=== PATIENT | male | born 1970 | race Caucasian/White ===

== ENCOUNTER 2020-03-02 07:40 | Outpatient (CLI) | payer BC, SELFPAY ==
--- NOTE | 2020-04-20 13:26 | WPDHOMESLEEP ---
Sleep Study - Home Unattended Date of Study: 03/02/20 Ordering Provider: Silvia Moser MD Interpreting Physician: Silvia Moser MD Home Sleep Study Type: Apnea Link Air Height: 1.75 m Weight: 106.594 kg Body Mass Index: 34.7 Neck Circumference (inches): 17.5 [place]: 3 Reason for Sleep Study difficulty initiating and maintaining sleep, waking throughout the night, chronic sedative use Sleep History Ty Steinberg is a 49-year-old male who has a history of difficulty staying asleep and getting to sleep even using medication. Does not awaken from sleep feeling short of breath. He rarely has awakenings at night with heartburn, belching or coughing. He occasionally snores, never loudly enough so that others complain about it. He rarely has trouble sleeping with a cold. He does not gasp for breath at night. He does not have breathing problems at night reported to him by others. He rarely sweats excessively at night. Does not notice his heart pounding or beating irregularly at night. He rarely falls asleep during the day, never involuntarily, never while driving and never during physical effort. He does not have loss of muscle tone with strong emotion. 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 He does not feel paralyzed on waking or falling asleep. He rarely has vivid dreamlike scenes upon awakening or falling asleep. He rarely is afraid to go to sleep. Occasionally has nightmares. He occasionally remembers his dreams. He frequently has racing thoughts. He constantly feels sad depressed and anxious. He never has muscular tension, never notices parts of his body jerking any never kicks at night. He denies having crawling and aching feelings in his legs at night and any leg pain at night. He does not have morning jaw pain. He does not grind his teeth during sleep. He rarely is bothered by pain during the day. He is not awakened by pain at night. He occasionally wakes up feeling stiff in the morning, rarely with sore achy muscles never with pain in the neck and spine. He has fatigue, panic, sexual issues, memory problems, insomnia, concentration difficulties, and nightmares. Normal bedtime is 9:00 p.m. falling asleep within 30 minutes, typically waking 1-3 times at night for 10 minutes. While awake he goes to the bathroom. Wake time varies. He wakes up as late as possible. He does not use an alarm clock. He has variable shifts at work. He denies taking naps. A short nap is not refreshing. He is usually drowsy in the morning for 2 hours. Habaits: No current tobacco. Caffeine 1 serving a day. No alcohol or recreational drugs. 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 Smoking status: Former smoker Medications Home Medications Medication Instructions Recorded Confirmed Type aripiprazole 5 mg tablet 5 mg PO DAILY 10/14/19 History duloxetine 60 mg capsule,delayed 60 mg PO DAILY 10/14/19 History release lamotrigine 200 mg tablet 200 mg PO DAILY 10/14/19 History lorazepam 0.5 mg tablet 0.5 mg PO DAILY PRN 10/14/19 History trazodone 100 mg tablet 100 mg PO BID 10/14/19 History Sleep Procedure This test was performed using 4 channel monitoring including respiratory effort channel, snoring channel, heart rate channel, and oxygen saturation channel. This study was scored using CMS guidelines. Sleep Architecture Not applicable for home sleep test. Respiratory Analysis The recording time was 8 hours 6 minutes. That evaluation time was 7 hours 5
[2020-04-20 13:38] VITALS: BMI 34.7
== END 2020-03-02 07:41 | disposition home or self-care (01) ==
LOC: ANHCSM 07:41
PROVIDERS: Visit Provider Internal Medicine Critical Care Medicine
DX: G47.33 Obstructive sleep apnea (adult) (pediatric) (principal)
CPT/HCPCS: 95806

== ENCOUNTER 2022-12-26 20:48 | Emergency (ER) | payer BC, SELFPAY ==
--- NOTE | ~2022-12-26 | CT_ITS ---
EXAMINATION: CT abdomen pelvis w con DATE: 12/26/2022 22:36 INDICATION: Acute onset of abdominal pain, nausea, vomiting, diaphoresis. TECHNIQUE: Computed tomography (CT) of the abdomen and pelvis was performed with 100 CC Omnipaque 350 intravenous contrast. Automated exposure control and iterative reconstruction technique were employe d. Exam dose: 1071.18 mGy-cm total exam DLP. COMPARISON: None. FINDINGS: Bilateral fat-containing foramen of [place]k hernias. The lung bases are clear of infiltrate or consolidation. Heart size is within normal range. No perica rdial or pleural effusion. Small sliding hiatal hernia. Status post cholecystectomy. Indeterminate approximately 2.2 cm right hepatic space-occupying mass lesion with apparently irregula r margins. Approximately 6.5 mm hypoattenuating lesion is suggested in the medial segment of the left hepatic lobe. Examination is limited by considerable patient respiratory motion. Additional smaller lesions including 3.5 mm hypoattenuating lesion of the lateral segment left hepatic lobe may be prese nt. No pancreatic mass lesion, calcification or ductal dilatation is evident. No bile duct dilatation is detected. Splenic size is within normal limits. Normal morphology of the adrenal glands. Probable 6 mm upper pole left renal cyst. The kidneys otherwise appear unremarkable considering the m otion artifact. No urinary tract calculus or hydroureteronephrosis is evident. There is prostate enlargement and minimal calcification. The urinary bladder appears unremarkable. Normal caliber of the abdominal aorta. No intraperitoneal or retroperitoneal or pelvic mass lesion or adenopathy or ascites is noted. Small fat-containing inguinal hernias. Very small fat-containing umbilical hernia. There are are numerous diverticula of the left colon; no CT evidence of diverticulitis or bowel obstr uction, bowel wall thickening, pneumatosis or intraperitoneal free air is detected. Normal appendix. Moderate chronic anterior wedging of T11 vertebral body. No suspicious osteolytic or osteoblastic les ions are noted. IMPRESSION: Limited examination due to considerable patient respiratory motion Multiple indeterminate hepatic space-occupying mass lesions. Consider hepatic MRI Small sliding hiatal hernia Status post cholecystectomy. Probable 6 mm upper pole left renal cyst Diverticulosis of left colon; no evidence of diverticulitis Normal appendix Chronic moderate anterior wedging of T11 vertebral body Reviewed, dictated and finalized at [facility]. Reviewed, dictated and finalized at [facility]. IMPRESSION: Limited examination due to considerable patient respiratory motion Multiple indeterminate hepatic space-occupying mass lesions. Consider hepatic M RI Small sliding hiatal hernia Status post cholecystectomy. Probable 6 mm upper pole left renal cyst Diverticulosis of left colon; no evidence of diverticulitis Normal appendix Chronic moderate anterior wedging of T11 vertebral body
[2022-12-26 20:57] VITALS: BP 107/61; PULSE 84; RESP 36; TEMP 36.5; O2SAT 100
[2022-12-26 21:34] LABS: Basophils Absolute Auto 0.1 K/mm3 (0.0-0.1); Basophils Percent Auto 0.3 % (0.2-1.2); Eosinophils Absolute Auto 0.1 K/mm3 (0-0.3); Eosinophils Percent Auto 0.3 % (0-4.4); Hematocrit 41.9 % (42.0-52.0); Hemoglobin 14.5 g/dL (14.0-18.0); Immature Granulocyte Absolute 0.12 K/mm3 (0.00-0.031); Immature Granulocyte Percent A 0.6 % (0-0.5); Lymphocytes Absolute Auto 3.16 K/mm3 (0.9-3.2); Lymphocytes Percent Auto 15.4 % (18.3-44.2); Mean Corpuscular HGB Conc 34.6 g/dl (32-36); Mean Corpuscular Hemoglobin 30.5 pg (26-34); Mean Corpuscular Volume 88.2 fl (80-100); Mean Platelet Volume 9.9 fl (7.4-10.4); Monocytes Percent Auto 4.8 % (2.6-8.5); Neutrophils Absolute Auto 16.2 K/mm3 (1.3-6.7); Neutrophils Percent Auto 78.6 % (45.5-73.1); Platelet Count Result 225 k/mm3 (150-375); Red Blood Count 4.75 M/mm3 (4.6-6.20); Red Cell Distribution Width 11.9 % (11.5-14.5); White Blood Count 20.6 K/mm3 (4.5-10.0)
[2022-12-26] MEDS: ONDANSETRON INJ 4 MG/2 ML VIAL IV PUSH (21:35)
[2022-12-26] MEDS: HYDROmorphone HCL INJ (*CRX) 1 MG/ML SYR 0.5 MG IV PUSH (21:35)
[2022-12-26] MEDS: SODIUM CHLORIDE 0.9% IV 1,000 ML 999 ML IV CONT ×3 (21:37→23:08)
[2022-12-26 21:48] LABS: Albumin Level 4.8 g/dL (3.5-5.1); Alkaline Phosphatase 68 U/L (38-126); Anion Gap 16 mmol/L (8-16); Aspartate Amino Transferase 32 U/L (17-59); Bilirubin,Total 0.6 mg/dL (0.2-1.3); Blood Urea Nitrogen 19 mg/dL (9-20); Calcium 9.2 mg/dL (8.4-10.2); Carbon Dioxide 17 mmol/L (22-30); Chloride 102 mmol/L (98-107); Estimated CRCL calculation 108 ml/min; Estimated Glomerular Filt Rate > 60; Glucose 170 mg/dL (65-110); Lactic Acid Reflex 5.9 mmol/L (0.7-2.0); Lipase 323 U/L (23-300); Potassium 3.3 mmol/L (3.4-5.0); Sodium 135 mmol/L (137-145)
[2022-12-26 22:00] LABS: Alanine Aminotransferase 43 U/L (6-50)
--- NOTE | 2022-12-26 22:05 | ED.GENADULT ---
[facility] - General Adult General Chief complaint: Abdominal Pain Stated complaint: abd pain, nausea Time Seen by Provider: 12/26/22 21:07 History of Present Illness [facility] narrative: Patient presents the emergency department with severe generalized abdominal pain. He is diaphoretic and moaning. He is also very pale. He is in severe pain. He states it started a couple hours prior to arrival when he thought he ate some bad food. He has also had diarrhea and vomiting. Denies having had episodes like this similar in the past Related Data Home Medications Medication Instructions Recorded Confirmed aripiprazole 5 mg tablet 5 mg PO DAILY 10/14/19 duloxetine 60 mg capsule,delayed 60 mg PO DAILY 10/14/19 release lamotrigine 200 mg tablet 200 mg PO DAILY 10/14/19 lorazepam 0.5 mg tablet 0.5 mg PO DAILY PRN 10/14/19 trazodone 100 mg tablet 100 mg PO BID 10/14/19 Allergies Allergy/AdvReac Type Severity Reaction Status Date / Time No Known Allergies Allergy Unverified 12/26/22 21:06 Review of Systems Review of Systems: Review of systems negative except what is documented in the [facility] Past Medical History Medical History Depression Depression Surgical History Surgical History Hx of cholecystectomy Social History Social History Social History: smoked in the past on and off, cigarettes, some marijuana, none recently, little alcohol; 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 Smoking status: Former smoker Exam Narrative: GENERAL: Diaphoretic, in distress, in pain HEAD: Normocephalic, atraumatic. EYES: PERRLA and EOMI. ENT: Nares clear, no rhinorrhea or epistaxis. Mucous membranes moist. NECK: Supple. CHEST: Clear to auscultation. No respiratory distress. Tachypnea HEART: Regular rate and rhythm. ABDOMEN: Soft, generalized tenderness diaphoretic nondistended. EXTREMITIES: Normal range of motion. No edema. SKIN: Warm, no rash. NEURO: No focal deficits. Alert and oriented x3. PSYCH: Normal mood and affect. Course Course Emergency Course: Differential diagnosis includes but not limited to perforated bowel, pancreatitis, kidney stone, volvulus, small bowel obstruction, appendicitis, acute cholecystitis Telemetry ordered due to chief complaint and getting narcotic pain medication to evaluate for dysrhythmias. Evaluated by myself. Rhythm NSR Rate 85 Vital Signs Vital signs: Vital Signs Temperature 36.5 C 12/26/22 20:57 Pulse Rate 84 12/26/22 20:57 Respiratory Rate 36 H 12/26/22 20:57 Blood Pressure 107/61 12/26/22 20:57 Pulse Oximetry 100 12/26/22 20:57 Oxygen Delivery Room Air 12/26/22 20:57 Temperature 36.5 C 12/26/22 20:57 Pulse Rate 84 12/26/22 20:57 Respiratory Rate 36 H 12/26/22 20:57 Blood Pressure 107/61 12/26/22 20:57 Pulse Oximetry 100 12/26/22 20:57 Oxygen Delivery Room Air 12/26/22 20:57 Medical Decision Making MDM Narrative Medical decision making narrative: CT scan ordered negative for acute pathology causing patient's presentation Initial lactate elevated but he was also hyperventilating. Fluids ordered. Will repeat lactate Repeat lactate 2.2. Patient's presentation consistent with THC hyperemesis. Cool diaphoretic and hyperventilating with respiratory rate 36 and CO2 17. White blood cell count secondary to vomiting. Patient vomiting very loudly and agitated consistent with THC. He has not had this in the past. Will reassess. Pt is back to baseline. Abdominal pain is gone. no further vomiting. He is drinking water. VSS without hyperventilation, discussed liklihood of hyperemesis with him and his mom. I strongly recommended that he stop marijuana use in the future to avoid this episode. He is receptive. I also advised strict return precautions and advised him to follow-u
[2022-12-26] MEDS: HYDROmorphone HCL INJ (*CRX) 1 MG/ML SYR IV PUSH ×2 (22:22→23:07)
[2022-12-26] MEDS: LORazepam INJ (*CRX) 2 MG/ML VIAL 1 MG IV PUSH (23:06)
[2022-12-26 23:36] LABS: Appearance Urine Clear (Clear); Bilirubin Urine Negative (Negative); Blood Urine Negative (Negative); Color Urine Yellow (Yellow); Glucose Urine UA Negative (Negative); Ketones Urine 2+ mg/dL (Negative); Leukocyte Esterase Ur Negative LEU/UL (Negative); Nitrate Urine Negative (Negative); Protein Urine Negative (Negative); Specific Grav Ur 1.025 (1.001-1.035); Urobilinogen Urine 0.2 mg/dL (<2.0); pH Urine 6.5 (5.0-9.0)
[2022-12-26 23:37] LABS: Add Urine Microscopic? NO
[2022-12-26 23:53] LABS: Amphetamine Screen Urine Negative (Negative); Barbiturate Screen Urine Negative (Negative); Benzodiazepines Screen Urine Negative (Negative); Cannabinoid Screen Urine Positive (Negative); Cocaine Screen Urine Negative (Negative); Methadone Screen Urine Negative (Negative); Opiate Screen Urine Negative (Negative); Phencyclidine Screen Urine Negative (Negative)
[2022-12-27 00:31] LABS: Reflex Lactic Acid Yes or No Add Lactic
[2022-12-27 00:52] LABS: Lactic Acid Reflex 2.2 mmol/L (0.7-2.0)
== END 2022-12-27 01:22 | disposition home or self-care (01) ==
PROVIDERS: Emergency Provider Emergency Medicine
DX: R10.84 Generalized abdominal pain (principal); R11.10 Vomiting, unspecified; F12.90 Cannabis use, unspecified, uncomplicated; F32.A Depression, unspecified; Z90.49 Acquired absence of other specified parts of digestive tract; Z87.891 Personal history of nicotine dependence
CPT/HCPCS: 36415; 74177; 80053; 80307; 81003; 83605; 83690; 85025; 96361; 96374; 96375; 96376; 99284; J1170; J2060; J2405; J7030; Q9967